=== PATIENT | male | born 1980 | race Caucasian/White ===

== ENCOUNTER 2022-09-12 00:47 | Emergency (ER) | payer BC, MEDICARE, OTHER ==
[~2022-09-12] VITALS: Ht 188 cm; Wt 90.7 kg
--- NOTE | 2022-09-12 01:15 | NUR ---
PATIENT IN BED 08 ON MONITOR AND POX, AWAITING MD [place]. PATIENT HAS UNLABORED AND EVEN BREATHING.
--- NOTE | 2022-09-12 01:20 | NUR ---
[facility] ER CALLED FOR CODE STEMI.
--- NOTE | 2022-09-12 01:20 | NUR ---
BLOOD COLLECTED AND SENT TO LAB
[2022-09-12] MEDS ORDERED: NITROGLYCERIN 0.4 MG/TAB BOTTLE ONE (01:26)
[2022-09-12] MEDS ORDERED: ASPIRIN 325 MG TABLET ONE (01:26)
[2022-09-12 01:28] VITALS: BP 149/102
[2022-09-12] MEDS ORDERED: ASPIRIN 325 MG TABLET PO ONE (01:30)
[2022-09-12] MEDS ORDERED: NITROGLYCERIN 0.4 MG/TAB BOTTLE SL ONE (01:30)
[2022-09-12] MEDS ORDERED: HEPARIN INFUSION/D5W 500 ML IV ONE (01:30)
[2022-09-12] MEDS ORDERED: HEPARIN SODIUM, PORCINE 5000 UNITS/1 ML VIAL IV ONE (01:30)
[2022-09-12] MEDS ORDERED: MORPHINE SULFATE INJ 4 MG/ML DISP.SYRIN ONE (01:32)
--- NOTE | 2022-09-12 01:32 | NUR ---
911 called for STEMI transfer to [facility] er.
[2022-09-12] MEDS ORDERED: HEPARIN SODIUM, PORCINE 5000 UNITS/1 ML VIAL ONE (01:36)
--- NOTE | 2022-09-12 01:40 | NUR ---
RA99 AT BEDSIDE FOR PATIENT TRANSFER
[2022-09-12 01:41] LABS: BASOPHILS # (AUTO) 0.2 K/uL (0.0-0.2); BASOPHILS % (AUTO) 1.4 % (0.0-2.0); EOSINOPHILS % (AUTO) 1.7 % (0.0-6.0); HEMATOCRIT 49 % (39-51); HEMOGLOBIN 16.1 g/dL (13.5-17.5); MEAN CORPUSCULAR HGB CONC 33 g/dl (31.0-36.0); MEAN CORPUSCULAR VOLUME 91 fL (80-96); MONOCYTES # (AUTO) 1.3 K/uL (0.1-1.30); MONOCYTES % (AUTO) 9.3 % (2.0-12.0); NEUTROPHILS # (AUTO) 6.6 K/uL (1.8-8.9); NEUTROPHILS % (AUTO) 45.6 % (43.0-81.0); PLATELET COUNT (AUTO) 306 K/uL (150-450); RED BLOOD CELL COUNT(AUTO) 5.33 MIL/uL (4.5-6.0); WHITE BLOOD COUNT (AUTO) 14.4 K/uL (4.3-11.0)
--- NOTE | 2022-09-12 01:41 | NUR ---
REPORT GIVEN TO Laly BARBOSA for DEION
--- NOTE | 2022-09-12 01:52 | NUR ---
PT TRANSFERED PER RA TO [facility].
[2022-09-12 01:54] LABS: CALCIUM, SERUM 8.9 mg/dL (8.5-10.1); CARBON DIOXIDE 23 mmol/L (21-32); CHLORIDE 102 mmol/L (98-107); CREATININE 1.3 mg/dL (0.6-1.3); GLUCOSE 172 mg/dL (74-106); POTASSIUM 3.4 mmol/L (3.5-5.1); SODIUM SERUM 137 mmol/L (136-145); UREA NITROGEN, BLOOD 12 mg/dL (7-18)
[2022-09-12] MEDS ORDERED: MORPHINE SULFATE INJ 2 MG/ML DISP.SYRIN IV ONE (02:00)
[2022-09-12 02:01] LABS: ALANINE AMINOTRANSFERASE 77 U/L (12-78); ALBUMIN 3.8 g/dL (3.4-5.0); ALKALINE PHOSPHATASE 67 U/L (46-116); ASPARTATE AMINOTRANSFERASE 52 U/L (15-37); BILIRUBIN,DIRECT 0.1 mg/dL (0.0-0.2); BILIRUBIN,TOTAL 0.4 mg/dL (0.2-1.0); TOTAL PROTEIN, SERUM 7.4 g/dL (6.4-8.2)
== END 2022-09-12 04:10 | disposition short-term general hospital (02) ==
LOC: ER 00:55
DX: I21.19 ST elevation (STEMI) myocardial infarction involving other coronary artery of inferior wall (principal); R07.9 Chest pain, unspecified; I10 Essential (primary) hypertension; Z88.8 Allergy status to other drugs, medicaments and biological substances
CPT/HCPCS: 99291; 96374; 96375; 93005; 71045; 85025; 80048; 80076; 85730; 36415; 84484; J1644; J2270